=== PATIENT | female | born 1965 | race African-American/Black ===

== ENCOUNTER 2024-01-18 14:08 | Emergency (ER) | payer OTHER ==
[2024-01-18 14:14] VITALS: BP 134/63; PULSE 82; RESP 20; TEMP 98.9; BMI 44.6
[2024-01-18] MEDS ORDERED: ALBUTEROL SO4 2.5/IPRATROPIUM 0.5 INH SOL 3 ML VIAL.NEB. NEB ONE ×2 (15:17→16:33)
[2024-01-18] MEDS: ALBUTEROL SO4 2.5/IPRATROPIUM 0.5 INH SOL 3 ML VIAL.NEB. NEB SCH (15:20)
[2024-01-18 16:29] LABS: POTASSIUM 3.6 mmol/L (3.5-5.1)
[2024-01-18 16:31] LABS: ALBUMIN 3.4 g/dl (3.4-5.0); CALCIUM 9.3 mg/dL (8.5-10.1)
[2024-01-18 16:34] LABS: CREATININE 0.8 mg/dL (0.55-1.3)
[2024-01-18] MEDS ORDERED: predniSONE 20 MG TABLET (UD) ONE (16:34)
[2024-01-18 16:36] LABS: BILIRUBIN,TOTAL 0.5 mg/dL (0.2-1); TOT PROT 7.2 g/dl (6.4-8.2)
[2024-01-18] MEDS: predniSONE 20 MG TABLET (UD) PO ONE (16:41)
[2024-01-18] MEDS: methylPREDNISolone NA SUCC 125 MG/2 ML VIAL IVPUSH ONE (16:42)
== END 2024-01-18 19:25 | disposition home or self-care (01) ==
LOC: JER 14:08
PROC: 3E0F7GC Introduction of Other Therapeutic Substance into Respiratory Tract, Via Natural or Artificial Opening (ICD-10-PCS; principal; 2024-01-18)
DX: J45.909 Unspecified asthma, uncomplicated (principal); R07.89 Other chest pain; R05.9 Cough, unspecified; R06.02 Shortness of breath; Z20.822 Contact with and (suspected) exposure to COVID-19
CPT/HCPCS: 0241U-QW; 36415; 71045-TC-FY; 80053; 82962; 83880; 84484; 93005; 93010; 99285-25